=== PATIENT | female | born 1995 | race Caucasian/White ===

== ENCOUNTER 2021-07-19 06:35 | Emergency (ER) | payer MEDICAID ==
[~2021-07-19] VITALS: Ht 167.6 cm; Wt 102.1 kg
[2021-07-19 06:36] VITALS: BP 113/62
--- NOTE | 2021-07-19 06:36 | NUR ---
PT BIBA TO ER BED 11
[2021-07-19] MEDS ORDERED: IBUPROFEN 600 MG TAB PO ONE (06:40)
[2021-07-19] MEDS ORDERED: HYDROcodone/APAP 10/325 MG 1 TAB TAB PO PRN (06:40)
--- NOTE | 2021-07-19 06:57 | NUR ---
25 YO F BIBA FROM HOME WITH C/C OF 10/10 PAIN TO LEFT KNEE AND ANKLE S/P FALLING FROM [employer]EP [employer]AIRS CHASING DOG. LARGE ABRASION ON LEFT THIGH. DENIES HITTING HEAD. LIMITED ROM OF LEFT ANKLE WITH PAIN. PEDAL PULSES STRONG BILAT. HX:SCHIZO, BIPOLAR RX:NONCOMPLAINT FREDYA
--- NOTE | 2021-07-19 07:26 | NUR ---
REPORT RECEIVED FROM TANISHA LOPES FOR CONTINUITY OF CARE.
--- NOTE | 2021-07-19 07:26 | NUR ---
Pt report given to MARIANNE BOWDEN. Transfer of care at this time.
[2021-07-19] MEDS ORDERED: BACITRACIN OINT 500 UNITS/GM PKT TP ONE ×2 (07:40)
[2021-07-19] MEDS ORDERED: ACET-10509 PO (07:46)
[2021-07-19] MEDS ORDERED: IBUP-2213 PO (07:46)
--- NOTE | 2021-07-19 08:10 | NUR ---
PT'S WOUND CLEANED AND IRRIGATED WITH NORMAL SALINE AND WARM WATER. APPLIED BACITRACIN TO PT'S WOUND AND AND DRESSED WITH 3X8 NON-ADHERENT GUAZE PADS AND WRAPPED WITH KOFLEX TAPE, CMS WNL BEFORE AND AFTER. PT ALSO PLACED IN ORTHO-KNEE IMMOBILIZER, CMS WNL BEFORE AND AFTER. PT ALSO GIVEN CRUTCHES THAT WERE ADJUSTED TO PT'S SIZE AND HEIGHT. PT GIVEN ONE ON ONE INSTRUCTION ON HOW TO USE THEM AND PT STATED THAT THEY WILL SHOW PROPER DEMENOSTRATION ON HOW TO USE CRUTCHES BEFORE SHE LEAVES DUE TO PT IS UNABLE TO STAND, WALK AND SHOW DEMENSTRATION ON HOW TO USE CRUTCHES DUE TO FEELING WEAK, LIGHT HEADED AND FEELING LIKE SHE IS GOING TO PASS OUT PER PT'S WORDS. ERMD AND AGER OPERATOR NOTIFIED.
--- NOTE | 2021-07-19 08:30 | NUR ---
PT STATES SHE FEELS DROWSY, PT GIVEN SNACKS AND JUICE.
--- NOTE | 2021-07-19 09:15 | NUR ---
PT STATES THAT THEY FEEL BETTER AND SHOWED PROPER DEMENSTRATION ON HOW TO USE THE CRUTCHES AND PT HAD NO FURTHER QUESTIONS. RN NOTIFIED.
[2021-07-19 09:23] VITALS: BP 117/65
--- NOTE | 2021-07-19 09:23 | NUR ---
Patient discharged with v/s stable. Written and verbal after care instructions given and explained. Patient alert, oriented and verbalized understanding of instructions. Ambulatory with steady gait. All questions addressed prior to discharge. ID band removed. Patient advised to follow up with PMD. Rx of TYLENOL AND IBUPROFEN given. Patient educated on indication of medication including possible reaction and side effects. Opportunity to ask questions provided and answered.
== END 2021-07-19 09:23 | disposition home or self-care (01) ==
LOC: MED 06:35
DX: S80.212A Abrasion, left knee, initial encounter (principal); M25.462 Effusion, left knee; F20.9 Schizophrenia, unspecified; W01.0XXA Fall on same level from slipping, tripping and stumbling without subsequent striking against object, initial encounter; Y93.89 Activity, other specified; Y92.89 Other specified places as the place of occurrence of the external cause; Y99.8 Other external cause status
CPT/HCPCS: 29505; 73562; 73590; 90471; 90715; 99284; Q0092

== ENCOUNTER 2022-04-21 15:55 | Emergency (ER) | payer MEDICAID ==
[~2022-04-21] VITALS: Ht 167.6 cm; Wt 106.2 kg
[~2022-04-21 15:55] MED LIST: ACET-10509 PO; IBUP-2213 PO
[2022-04-21 16:02] VITALS: BP 137/96
--- NOTE | 2022-04-21 16:16 | NUR ---
PT AMBULATED TO ER BED 8
--- NOTE | 2022-04-21 16:19 | NUR ---
Dr. Bradshaw evaluating patient at bedside.
[2022-04-21] MEDS ORDERED: KETOROLAC 30 MG/ML VIAL IVP ONE (16:25)
[2022-04-21] MEDS ORDERED: ONDANSETRON 4 MG/2 ML VIAL IVP ONE (16:25)
[2022-04-21] MEDS ORDERED: NACL 0.9% 1,000 ML IV SCH (16:25)
[2022-04-21 16:47] LABS: BASOPHILS % (AUTO) 0.3 % (0.0-2.0); EOSINOPHILS % (AUTO) 0.5 % (0.0-4.0); HEMATOCRIT 42.1 % (36-48); HEMOGLOBIN 13.8 g/dL (12.0-16.0); LYMPHOCYTES # (AUTO) 1.1 K/uL (2.5-16.5); LYMPHOCYTES % (AUTO) 16.1 % (20.5-51.1); MEAN CORPUSCULAR HEMOGLOBIN 28 pg (27-31); MEAN CORPUSCULAR HGB CONC 33 g/dL (33-37); MEAN CORPUSCULAR VOLUME 85.8 fL (80-94); MONOCYTES # (AUTO) 0.7 K/uL (0.8-1.0); MONOCYTES % (AUTO) 10.9 % (1.7-9.3); NEUTROPHILS # (AUTO) 4.8 K/uL (1.8-7.7); NEUTROPHILS % (AUTO) 72.2 % (42.2-75.2); PLATELET COUNT (AUTO) 297 K/uL (140-450); RED BLOOD CELL COUNT(AUTO) 4.91 MIL/uL (4.20-5.40); RED CELL DISTRIBUTION WIDTH 14.7 % (11.6-13.7); WHITE BLOOD COUNT (AUTO) 6.6 K/uL (4.8-10.8)
[2022-04-21 17:09] LABS: ALBUMIN 3.7 g/dL (3.4-5.0); ANION GAP 14.8 (8-16); CARBON DIOXIDE 27.9 mmol/L (21-32); CREATININE 0.8 mg/dL (0.6-1.3); POTASSIUM 3.7 mmol/L (3.5-5.1); TOTAL BILIRUBIN 0.4 mg/dL (0.0-1.0)
--- NOTE | 2022-04-21 17:41 | NUR ---
Patient ambulated to restroom with steady gait.
[2022-04-21] MEDS ORDERED: IBUP-2213 PO (18:17)
[2022-04-21] MEDS ORDERED: ONDA8TAB87 PO (18:17)
[2022-04-21 18:34] VITALS: BP 107/69
--- NOTE | 2022-04-21 18:34 | NUR ---
Patient discharged with v/s stable. Written and verbal after care instructions given. Patient alert, oriented and verbalized understanding of instructions. Ambulatory with steady gait. All questions addressed prior to discharge. ID band removed. Patient advised to follow up with PMD. Rx of Zofran and Ibuprofen given. Opportunity to ask questions provided and answered.
--- NOTE | 2022-04-21 18:35 | NUR ---
The patient's care was reviewed and supervised by Katerina Medel RN.
== END 2022-04-21 18:34 | disposition home or self-care (01) ==
LOC: MED 15:55
DX: R10.13 Epigastric pain (principal); R11.0 Nausea; R19.7 Diarrhea, unspecified; F17.200 Nicotine dependence, unspecified, uncomplicated; Z90.49 Acquired absence of other specified parts of digestive tract; Z79.899 Other long term (current) drug therapy
CPT/HCPCS: 36415; 80053; 81002; 81025; 83690; 85025; 96361; 96374; 96375; 99284; J1885; J2405